=== PATIENT | female | born 1955 | race Two or more races ===

== ENCOUNTER 2023-09-26 12:49 | Outpatient (CLI) | payer MEDICARE, BC | END 2023-09-26 23:59 | disposition home or self-care (01) | LOC: MRI 12:49 | PROVIDERS: ATTEND Podiatrist Foot & Ankle Surgery | DX: M19.072 Primary osteoarthritis, left ankle and foot (principal); M79.672 Pain in left foot; M89.8X7 Other specified disorders of bone, ankle and foot; R60.0 Localized edema; M62.572 Muscle wasting and atrophy, not elsewhere classified, left ankle and foot; Z98.890 Other specified postprocedural states | CPT/HCPCS: 73718-TC ==

== ENCOUNTER 2023-11-25 08:52 | Outpatient (CLI) | payer MEDICARE, BC ==
[~2023-11-25 08:52] MED LIST: ASCO500T21 PO; CALC-261 PO; CYAN500T9 PO; GLUC-228 PO; LACT1CAP69 PO; MULT-1200 PO; ROSU5TAB13 PO; VENL75TA74 PO
== END 2023-11-25 23:59 | disposition home or self-care (01) ==
LOC: RAD 08:52
PROVIDERS: ATTEND Podiatrist Foot & Ankle Surgery
DX: M79.671 Pain in right foot (principal)
CPT/HCPCS: 73590-TC; 73600-TC; 73630-TC